=== PATIENT | female | born 1945 | race Caucasian/White ===

== ENCOUNTER 2018-08-26 11:55 | Day surgery (SDC) | payer BC | END 2018-08-26 14:41 | disposition home or self-care (01) | LOC: SURG 11:55 ==

== ENCOUNTER 2018-09-16 12:16 | Day surgery (SDC) | payer BC, MEDICARE ==
[~2018-09-16 12:16] MED LIST: MIDAZOLAM 2 MG/2 ML SOL ONE
[2018-09-16] MEDS: PHENYLEPHRINE HCL 10% OPHTHAL SOL ONE ×3 (13:14→13:21)
[2018-09-16] MEDS ORDERED: KETOROLAC/HOME 0.5% SOL OP ONE ×3 (13:14→13:21)
[2018-09-16] MEDS: CYCLOPENTOLATE 1% SOL ONE ×3 (13:14→13:21)
[2018-09-16] MEDS: TROPICAMIDE 1% OPHTH SOL ONE ×3 (13:14→13:21)
[2018-09-16] MEDS ORDERED: MOXIFLOXACIN-HOME SOL OP ONE ×2 (13:15→13:18)
[2018-09-16] MEDS: TETRACAINE HCL 0.5 % 1 DROP SOL ONE ×2 (13:21→13:56)
[2018-09-16 13:35] VITALS: RESP 18
[2018-09-16] MEDS ORDERED: POVIDONE IODINE 5% SOL ONE (13:44)
[2018-09-16] MEDS ORDERED: BSS W/ 0.5 MG P.F. EPI 1 BOTTLE ONE (13:44)
[2018-09-16] MEDS: LIDOCAINE HCL 2% MPF 10 ML SOL ONE ×2 (13:57→14:00)
[2018-09-16] MEDS ORDERED: ACETAZOLAMIDE 250 MG PO ONE (14:13)
[2018-09-16 14:17] VITALS: BP 131/55; PULSE 62; TEMP 96.8; O2SAT 99
== END 2018-09-16 14:45 | disposition home or self-care (01) ==
LOC: SURG 12:16
PROVIDERS: ATTEND Ophthalmology
DX: H25.89 Other age-related cataract (principal); E11.9 Type 2 diabetes mellitus without complications
CPT/HCPCS: J2250; A9270-GY